=== PATIENT | male | born 1955 | race Caucasian/White ===

== ENCOUNTER 2018-01-15 15:36 | Emergency (ER) | payer OTHER ==
[~2018-01-15] VITALS: Ht 177.8 cm; Wt 106.6 kg
[2018-01-15] MEDS ORDERED: NORFLEX100 MG PO (17:36)
[2018-01-15] MEDS ORDERED: NAPROSYN500 MG PO (17:36)
[2018-01-15] MEDS ORDERED: HYDROCODONE-AP1 EAC6 PO (17:36)
[2018-01-15 18:00] VITALS: BP 129/75
== END 2018-01-15 18:10 | disposition home or self-care (01) ==
LOC: ER 15:36
DX: M76.11 Psoas tendinitis, right hip (principal); M70.88 Other soft tissue disorders related to use, overuse and pressure other site; Y93.89 Activity, other specified

== ENCOUNTER 2018-01-21 19:03 | Emergency (ER) | payer OTHER ==
[~2018-01-21] VITALS: Ht 177.8 cm; Wt 111.1 kg
--- NOTE | ~2018-01-21 | EKG ---
[place] [address] [facility] [email or web address] [address] ELECTROCARDIOGRAM REPORT Name: KITBRYCE Room #: ANGEL Amin#: [id number] Admission: 01/21/18 Attend Phys: Discharge: Date of : 59 Report #: [id number] THIS REPORT FOR: //name// [facility] ED Test Date: 2018-01-21 Test Time: 20:19:50 Pat Name: BRYCE PANTOJA Department: Room: Gender: Tile Installer: [facility] : 1955 Requested By: Dwayne Jorge Order Number: [id number] MD: Maycol Al Measurements Intervals [place] Rate: 80 P: 67 MA: 161 QRS: -1 QRSD: 100 T: 35 QT: 355 QTc: 410 Interpretive Statements Sinus rhythm Compared to ECG 01/25/2015 14:09:03 No significant changes Electronically Signed On 01-21-2018 20:58:34 MID LEVEL PRACTITIONER by Maycol Al [email or web address] <ELECTRONICALLY SIGNED> By: Maycol Al MD 01/21/182057 18 18 Maycol Al MD /MIGUEL
[~2018-01-21 19:03] MED LIST: HYDROCODONE-AP1 EAC6 PO; NAPROSYN500 MG PO; NORFLEX100 MG PO
[2018-01-21 19:50] LABS: HEMATOCRIT 38.4 % (42.0-52.0); HEMOGLOBIN 13.1 gm/dL (14.0-18.0); MCH 29.6 pg (26.0-34.0); MCHC 34.1 g/dL (28.0-37.0); PLATELET COUNT 198 thou/uL (150-400); RBC 4.42 mil/uL (4.50-6.00); RDW 14.7 % (10.5-14.5); WBC 8.1 thou/uL (4.0-11.0)
[2018-01-21 19:55] LABS: CALCIUM 9.2 mg/dL (8.5-10.1); CREATININE 1.1 mg/dL (0.7-1.3); POTASSIUM 3.3 mmol/L (3.5-5.1)
[2018-01-21 20:23] LABS: ABSOLUTE NEUTROPHILS 5.8 thou/uL (1.4-8.2); ATYPICAL LYMPHS 4 %
[2018-01-21] MEDS ORDERED: IBUPROFEN 600600 M1 PO (22:29)
[2018-01-21] MEDS ORDERED: MEDROLDOSEPACK PO (22:29)
[2018-01-21 23:00] VITALS: BP 131/79
== END 2018-01-21 23:05 | disposition home or self-care (01) ==
LOC: ER 19:03
PROVIDERS: Physician Assistant
DX: M70.71 Other bursitis of hip, right hip (principal); R55 Syncope and collapse; Y93.89 Activity, other specified